=== PATIENT | male | born 1995 ===

== ENCOUNTER 2020-07-09 14:50 | Emergency (ER) | payer OTHER ==
[2020-07-09] MEDS ORDERED: Ketorolac 15 MG/ML SDV IM ONE (15:34)
--- NOTE | 2020-07-09 16:14 | CR ---
Indication: Left 2nd finger injury and laceration Technique: Three views left hand Comparison: None Findings: Bones: Alignment is normal. No fractures or bone lesions. Joint spaces: Unremarkable. Soft tissues: Unremarkable. Impression: Negative. Dictated by Sabrina Lindo MD @ Jul 09 2020 4:12PM Signed by Dr. Sabrina Lindo @ Jul 09 2020 4:12PM
[2020-07-09] MEDS ORDERED: Lidocaine 1% 2 ML ONE (16:25)
[2020-07-09] MEDS ORDERED: Cephalexin 250 MG Cap PO STA (16:53)
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
[2020-07-09] MEDS ORDERED: Lidocaine 1% PF 2 ML SDV INJECT ONE (17:23)
[2020-07-09 17:26] VITALS: BP 105/78; PULSE 79
== END 2020-07-09 17:26 | disposition home or self-care (01) ==
LOC: MW.ED 14:50
DX: S61.211A Laceration without foreign body of left index finger without damage to nail, initial encounter (principal); W26.0XXA Contact with knife, initial encounter
CPT/HCPCS: 12001; 73130; 96372; 99283; A9270; J1885; J2001